=== PATIENT | female | born 1995 | race Caucasian/White ===

== ENCOUNTER 2017-07-08 09:50 | Inpatient (IN) | payer MEDICAID ==
[2017-07-08] VITALS (23 sets, daily range): BP systolic 98–132; BP diastolic 58–88
[~2017-07-08] VITALS: Ht 162.6 cm; Wt 70.8 kg
--- NOTE | 2017-07-08 10:14 | NUR ---
PATIENT TO ED DT UNCONTOLLED BLOOD SUGAR. PATIENT WITH HX OF IDDM. PT ARRIVED IN STABLE CONDITION, APPEARS IN NO APPARENT DISTRESS. RESPIRARTION EVEN AND UNLABORED. SKIN IS WARM TO TOUCH AND NON DIAPHORETIC. AFEBRILE, VSS. PENDING MD PINEDA
[2017-07-08 10:30] LABS: BASOPHILS % (AUTO) 0.3 % (0.0-2.0); EOSINOPHILS % (AUTO) 0.4 % (0.0-6.0); HEMATOCRIT 44 % (33-45); HEMOGLOBIN 14.9 g/dL (11.5-14.8); LYMPHOCYTES # (AUTO) 2.1 /CMM (0.8-4.8); LYMPHOCYTES % (AUTO) 22.6 % (20.0-44.0); MEAN CORPUSCULAR HEMOGLOBIN 29 PG (26.0-33.0); MEAN CORPUSCULAR HGB CONC 34 g/dl (31.0-36.0); MEAN CORPUSCULAR VOLUME 88 fL (82-100); MONOCYTES # (AUTO) 0.4 /CMM (0.1-1.30); MONOCYTES % (AUTO) 4.2 % (2.0-12.0); NEUTROPHILS # (AUTO) 6.6 /CMM (1.8-8.9); NEUTROPHILS % (AUTO) 72.5 % (43.0-81.0); PLATELET COUNT (AUTO) 499 /CMM (150-450); RED BLOOD CELL COUNT(AUTO) 5.06 MIL/uL (4.0-5.2); WHITE BLOOD COUNT (AUTO) 9.1 K/uL (4.3-11.0)
[2017-07-08] MEDS ORDERED: IV NS 0.9% 1,000 ML BAG IV ONE (10:30)
[2017-07-08 10:32] LABS: APPEARANCE,URINE Clear (CLEAR); BILIRUBIN,URINE Negative (NEGATIVE); BLOOD, URINE Large Ery/uL (NEGATIVE); COLOR,URINE Light yellow (YELLOW); KETONES,URINE 80 (NEGATIVE); LEUKOCYTE ESTERASE ,URINE Negative (NEGATIVE); NITRITE, URINE Negative (NEGATIVE); PH,URINE 5.5 (5.0-8.0); PROTEIN,URINE Negative (NEGATIVE); UGLUCOSE >=1000 mg/dL (NEGATIVE); UROBILINOGEN,URINE 0.2 EU/dL (0.2)
[2017-07-08 10:36] LABS: BACTERIA,URINE None seen /HPF (None Seen); RBC,URINE 80-100 /HPF (0-2); SQUAMOUS EPITHELIAL CELL,UR Few /HPF (None Seen); WBC,URINE 0-3 /HPF (0-3)
[2017-07-08 10:40] LABS: CALCIUM, SERUM 9.5 mg/dL (8.5-10.1); CREATININE 0.8 mg/dL (0.6-1.3); POTASSIUM 3.5 mmol/L (3.5-5.1)
[2017-07-08 10:46] LABS: ALBUMIN 3.7 g/dL (3.4-5.0); BILIRUBIN,TOTAL 0.2 mg/dL (0.2-1.0); TOTAL PROTEIN, SERUM 7.9 g/dL (6.4-8.2)
[2017-07-08] MEDS ORDERED: IV D5/0.45 NACL 1,000 ML IV PRN (12:26)
[2017-07-08] MEDS ORDERED: POTASSIUM CHLORIDE 20 MEQ TAB.PRT.SR PO ONE ×2 (12:30→12:40)
[2017-07-08] MEDS ORDERED: ACETAMINOPHEN 325 MG TABLET PO PRN (12:30)
[2017-07-08] MEDS ORDERED: INSULIN REGULAR, HUMAN 100 UNIT in IV NS 0.9% 99 ML IV PRN ×4 (12:30)
[2017-07-08] MEDS ORDERED: Z GUARD REMEDY 2 OZ OINT TP PRN (12:30)
[2017-07-08] MEDS ORDERED: IV D5/0.45 NACL 500 ML IV ONE (12:30)
[2017-07-08] MEDS ORDERED: MAG HYDROX/AL HYDROX/SIMETH 30 ML UDC PO PRN (12:30)
[2017-07-08] MEDS ORDERED: ZOLPIDEM TARTRATE 5 MG TABLET PO PRN (12:30)
[2017-07-08] MEDS ORDERED: MAGNESIUM HYDROXIDE 30 ML UDC PO PRN (12:30)
[2017-07-08] MEDS ORDERED: ONDANSETRON HCL/PF 4 MG/2 ML VIAL IVP PRN (12:30)
[2017-07-08] MEDS ORDERED: HYDROCODONE/APAP 5/325MG 1 EACH TABLET PO PRN (12:30)
[2017-07-08] MEDS ORDERED: POTASSIUM CL. PREMIX PERIPHER. 100 ML ONE (12:39)
[2017-07-08] MEDS: POTASSIUM CL. PREMIX PERIPHER. 50 ML IV SCH ×2 (12:50→13:59)
--- NOTE | 2017-07-08 13:23 | NUR ---
REPORT GIVEN TO CHRIS MUJICA FROM ICU. PATIENT REMAINS STABLE. VSS
[2017-07-08] MEDS: BLOOD SUGAR DIAGNOSTIC 1 EACH STRIP IN SCH ×5 (14:04→23:55)
[2017-07-08 14:31] LABS: ABG BASE EXCESS -4.6 mmol/L; ABG OXYGEN SATURATION 96.9 % (92.0-98.5); ABG PH 7.397 (7.350-7.450); ABG PO2 97.1 mmHg (75.0-100.0); AaDO2 14.3 mmHg; COHb 0.3 % (0.5-1.5); MetHb 1.6 % (0.0-1.5); O2Hb 95.1 % (94.0-97.0); SITE, ABG Right Radial; VENT MODE, BG room air
[2017-07-08 15:22] LABS: CALCIUM, SERUM 9.1 mg/dL (8.5-10.1); CREATININE 0.5 mg/dL (0.6-1.3); POTASSIUM 3.9 mmol/L (3.5-5.1)
--- NOTE | 2017-07-08 16:14 | NUR ---
MAP DRAFTER NOTE 1340: Admitted 21 y/o female, Romansh patient. Understands Slovak well. A/Ox4. No respiratory distress noted. Tolerated room air. No c/o discomfort at this time. No S/S hypo/hyperglycemia noted. on insulin drip @ 1unit/hr. PIVs intact. SR 90's on the monitor. KCl IVPB infusing. Skin assessment rendered, intact. Instructed patient to keep NPO for now while on insulin drip, verbalized understanding. 1400: BS 130. Started on D51/2NS @ 75 as ordered. 1500: BS 109 1600: BS 145. BMP resulted, Anion gap 17. Informed Dr. Carrillo for the update, awaiting MD order. Continue POC at this time. Family at bedside, aware for the POC.
[2017-07-08] MEDS ORDERED: INSULIN REGULAR, HUMAN 100 UNIT/ML 3 ML VIAL SQ PRN ×2 (16:30→22:30)
[2017-07-08] MEDS ORDERED: DEXTROSE 50%-WATER 50 ML DISP.SYRIN IV PRN ×3 (16:30→22:30)
[2017-07-08] MEDS ORDERED: *INSULIN REGULAR(HUMULIN R)HUM 100 UNIT/ML VIAL SQ PRN (16:30)
[2017-07-08] MEDS: IV NS 0.9% 1,000 ML IV PRN (16:33)
[2017-07-08] MEDS ORDERED: BLOOD SUGAR DIAGNOSTIC 1 EACH STRIP VI SCH (17:30)
--- NOTE | 2017-07-08 18:10 | NUR ---
THIRD SHIFT LIEUTENANT NOTE 1700: S/E by Dr. Carrillo, with new orders carried out. DCd insulin drip and placed on qachs moderate SS and changed IVF to NS @ 75. Patient verbalized understanding re: the new order. Started on Diabetic diet.
--- NOTE | 2017-07-08 20:26 | NUR ---
WOODWORKING SHOP LABORER. INITIAL ASSESSMENT. RECEIVED THE PT REST ON THE BED. AWAKE, ALERT. FOLLOW COMMANDS. PRECISION LENS GRINDER SHOWING NSR, AFEBRILE. IV RT AND LT HAND, 20G. IVF NS 75 ML/H. PT ON ROOM AIR. SAT 98%. NO ACUTE DISTRESS NOTED. HOB ELEVATED. WILL CONTINUE TO MONITOR VITALS.
[2017-07-08] MEDS ORDERED: INSULIN DETEMIR 100 UNIT/ML CARTRIDGE SQ SCH (22:00)
[2017-07-08] MEDS: INSULIN REGULAR, HUMAN 100 UNIT/ML 3 ML VIAL SQ PRN (22:12)
[2017-07-08] MEDS ORDERED: BLOOD SUGAR DIAGNOSTIC 1 EACH STRIP IN SCH (22:30)
[2017-07-09] VITALS (30 sets, daily range): BP systolic 99–130; BP diastolic 55–81
--- NOTE | 2017-07-09 01:04 | NUR ---
EDITOR CONTINUITY AND SCRIPT. BLOOD SUGAR [id number] SHELL NEW ORDER RECEIVED. ACCU CHECK Q4H, INSULIN AGGRESSIVE SLIDING SCALE.
[2017-07-09] MEDS: BLOOD SUGAR DIAGNOSTIC 1 EACH STRIP IN SCH ×6 (02:20→17:24)
[2017-07-09] MEDS: INSULIN REGULAR, HUMAN 100 UNIT/ML 3 ML VIAL SQ PRN ×4 (02:20→17:25)
--- NOTE | 2017-07-09 03:33 | NUR ---
COMPUTER AIDED DRAFTER. AM CARE. ORAL CARE. BED BATH GIVEN. LINEN CHANGED. PT ON ROOM AIR, SAT 97%. SEWING MACHINE OPERATOR PAPER BAGS SHOWING NSR. IV RT HAND IVF NS 75ML/H. AFEBRILE. WILL CONTINUE TO MONITOR VITALS.
[2017-07-09 04:54] LABS: BASOPHILS % (AUTO) 0.3 % (0.0-2.0); EOSINOPHILS % (AUTO) 0.6 % (0.0-6.0); HEMATOCRIT 38 % (33-45); HEMOGLOBIN 13.1 g/dL (11.5-14.8); LYMPHOCYTES % (AUTO) 43.7 % (20.0-44.0); MEAN CORPUSCULAR HEMOGLOBIN 30 PG (26.0-33.0); MEAN CORPUSCULAR HGB CONC 34 g/dl (31.0-36.0); MEAN CORPUSCULAR VOLUME 87 fL (82-100); MONOCYTES # (AUTO) 0.4 /CMM (0.1-1.30); MONOCYTES % (AUTO) 5.2 % (2.0-12.0); NEUTROPHILS # (AUTO) 3.5 /CMM (1.8-8.9); NEUTROPHILS % (AUTO) 50.2 % (43.0-81.0); PLATELET COUNT (AUTO) 387 /CMM (150-450); RDW COEFFICIENT OF VARIATION 14.1 (11.5-15.0); RED BLOOD CELL COUNT(AUTO) 4.37 MIL/uL (4.0-5.2); WHITE BLOOD COUNT (AUTO) 6.9 K/uL (4.3-11.0)
[2017-07-09 05:10] LABS: CREATININE 0.3 mg/dL (0.6-1.3); MAGNESIUM 1.8 mg/dL (1.8-2.4); PHOSPHORUS 3.6 mg/dL (2.5-4.9); POTASSIUM 2.9 mmol/L (3.5-5.1)
[2017-07-09] MEDS: IV NS 0.9% 1,000 ML IV PRN (05:42)
[2017-07-09] MEDS ORDERED: POTASSIUM CL. PREMIX PERIPHER. 50 ML IV SCH (06:00)
[2017-07-09] MEDS ORDERED: Magnesium 1GM/D5W 100ML PREMIX 100 ML IV ONE (06:03)
[2017-07-09] MEDS: Magnesium 1GM/D5W 100ML PREMIX 100 ML IV SCH ×2 (06:07→08:51)
--- NOTE | 2017-07-09 06:41 | NUR ---
PAN PUSHER BLOOD SUGAR 0530 68. ORANGE JUICE PO GIVEN. 0600 REPEAT BLOOD SUGAR 80. WILL CONTINUE TO MONITOR.
[2017-07-09] MEDS: Potassium Chloride 10 MEQ in IV D5W 50 ML IV SCH ×6 (08:05→13:58)
--- NOTE | 2017-07-09 10:01 | NUR ---
ALUMINUM POURER NOTE 0720: Received patient awake, A/Ox4. No respiratory distress noted. On room air. No c/o any discomfort at this time. PIVs intact, IVF infusing as ordered. Mg So4 infusing, awaiting for pharmacy for KCl IVPB. No S/S hypo/hyperglycemia noted at this time. 0900: BS 109. Mg and KCl infusing. 0930: Able to go to bathroom without assistance. 1000: No any significant changes noted at this time.
[2017-07-09] MEDS ORDERED: NPH,100I SQ (13:42)
[2017-07-09] MEDS ORDERED: INSU100I19 SQ (13:42)
--- NOTE | 2017-07-09 18:29 | NUR ---
QUALITY ASSURANCE LAB TECHNICIAN NOTE 1400: S/E by Dr. Carrillo, with order of DC home, given new prescriptions, discussed with patient re: the medications, verbalized understanding. No preferred pharmacy at this time, said she will go to nearest pharmacy from their house later. Encouraged to get PCP for F/U. Able to ambulate without assistance. Able to go to [place]. 1730: BS 232, given 8 units RI and given dinner tray. Able to eat 75%. 1820: Discharged patient in good condition, removed 2 PIVs, applied pressure, no bleeding noted. Applied dressing. Accompanied patient with mother to the lobby. Able to ambulate independently. To be picked up by aunt via private car.
== END 2017-07-09 18:35 | disposition home or self-care (01) | DRG 420 ==
LOC: ER 09:55 → ICU 12:36
PROVIDERS: ADMIT Internal Medicine; ATTEND Internal Medicine
DX: E10.10 Type 1 diabetes mellitus with ketoacidosis without coma (principal); E86.0 Dehydration; Z79.4 Long term (current) use of insulin; Z91.19 Patient's noncompliance with other medical treatment and regimen
CPT/HCPCS: 36415; 36600; 80048-TC; 80061-TC; 80076-TC; 81000-TC; 82010-TC; 82962-TC; 83735-TC; 84100-TC; 84703-TC; 85025-TC; 87081-TC; A4606; J1815; J3475; J3480; J3490; J7030; J7060; Z7610